=== PATIENT | female | born 1995 | race Caucasian/White ===

== ENCOUNTER 2019-09-17 06:12 | Inpatient (IN) | payer OTHER ==
[2019-09-17] VITALS (37 sets, daily range): BP systolic 97–147; BP diastolic 50–108
[~2019-09-17] VITALS: Ht 172.7 cm; Wt 85.3 kg
[2019-09-17] MEDS ORDERED: LR 1,000 ML IV SCH (07:33)
[2019-09-17] MEDS ORDERED: OXYTOCIN DRIP 30 UNITS in IV 1 EA IV SCH ×2 (07:45→20:36)
--- NOTE | 2019-09-17 07:51 | HPEPDOC ---
Obstetrical History & Physical General Date of Admission Sep 17, 2019 at 07:25 Primary Care Physician: A History of Present Illness patient is a 23 yo G1 @ 39+6wks gestation presents for LOF started at 0500 this AM. Patient reports waking up with gush of fluid and she continues to have leak age. denies VB. 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 history Past Medical History Medical History HYPOTHYROIDISM on synthroid 112.5mcg daily Surgical History: Other (eye surgery, T&A) Family History Significant Family History: No pertinent family hx Social History Social history denies tob/etoh/illicit rx Marital Status: Family situation: Spouse/partner home Psychosocial History: No pertinent psych hx * Smoker: non-smoker Alcohol: Denies Drugs: denies Imunizations Tdap status: current Influenza Status: needs Allergies Coded Allergies: No Known Allergies (Unverified , 09/17/19) Physical Examination Physical Examination GENERAL: Alert and oriented times three. ABDOMEN: Gravid and non-tender to touch. FETUS: Is vertex (VTX) by sterile vaginal examination (SVE), fetus is vertex (VTX) by Sagar. HEART RATE: s1s2 s m/g/c LUNGS: CTA s w/r/r. EXTREMITIES: No edema/erythema/tenderness Vital Signs/I&O Vital Signs Date Time Temp Pulse Resp B/P (MAP) Pulse Ox O2 Delivery O2 Flow Rate FiO2 09/17/19 06:37 98.4 85 18 123/78 (93) Laboratory Data 24H LABS Laboratory Tests 2 09/17/19 07:30: Serology Scanned Report Hepatitis B Testing Pertinent Laboratoy Data Blood Type: O+ RBC Antibody Screen: Negative HIV: Negative Hepatitis B: Negative Rapid Plasma Reagin: Nonreactive Rubella: Immune Varicella: Immune Chlamydia/Gonorrhea: Negative Group B Streptococcus: Negative Anatomy Ultrasound Placenta Location: Anterior Normal Anatomy: Yes Placenta Previa: No Vaginal Examination Dilation: 3 cm Effacement: 70% Station: 0 Cervical Consistency: Soft Cervical Position: Middle Presentation: Cephalic presentation Assessment Heart Rate (FHR): 140 Variability: Moderate Accelerations: Positive Decelerations: None Tocometer Contractions: No Assessment/Plan Assessment patient is a 23 yo G1 @ 39+6wks, grossly ruptured, PROM. Discussed with patient regarding expectant management vs. starting augmentation with pitocin and patient desires to have pitocin started. discussed l&d monitoring with possible invasive monitoring using FSE and IUPC. Risk of section discussed, vacuum and forceps delivery for emergent reason discussed, risk of infection, bleeding requiring blood transfusion with risk of anaphylactic reaction as well as transmission of blood borne pathogens. Plan Admit and orient. Isotope Hydrologist and consent. Diet: regular prior to pitocin, clear once pitocin starts Group B Streptococcus (GBS) negative Labs and intravenous (IV) per unit protocol. Counseled on Pitocin and induction of labor (IOL). Anticipate [normal spontaneous delivery ()]. C-S as appropriate. SHORTY KATE DO Sep 17, 2019 07:51
[2019-09-17 08:34] LABS: HEMATOCRIT 38.1 % (36.0-47.0); HEMOGLOBIN 12.9 g/dl (12.0-15.5); MEAN CORPUSCULAR HGB CONC 33.9 g/dl (32.0-36.5); MEAN CORPUSCULAR VOLUME 88.6 fl (80.0-96.0); PLATELET COUNT, AUTOMATED 227 10^3/uL (150-450); WHITE BLOOD COUNT 11.2 10^3/uL (4.0-10.0)
[2019-09-17] MEDS ORDERED: FENTANYL 2MCG/ML ROPIVACAINE 0.2% IN 0.9% NACL 100ML IVBAG As Ordered ONE (13:15)
[2019-09-17] MEDS ORDERED: REFRIGERATOR IV KEYS XX PRN (14:00)
[2019-09-17] MEDS ORDERED: ePHEDrine SULFATE 25 MG/5 ML(5MG/ML) SYRINGE IV PRN (14:00)
[2019-09-17] MEDS ORDERED: NALOXONE INJ 0.4 MG/1 ML VIAL (J2310) IV PRN (14:00)
[2019-09-17] MEDS ORDERED: EPIDURAL COMMENT XX SCH (14:00)
[2019-09-17] MEDS ORDERED: FENTANYL/ROPIVACAINE/NACL BAG 100 ML EPIDURAL SCH (14:00)
[2019-09-17] MEDS ORDERED: ONDANSETRON 4MG/2ML VIAL (J2405) IV PRN (14:00)
[2019-09-17] MEDS ORDERED: diphenhydrAMINE INJ 50MG/ML VIAL (J1200) IV PRN (14:00)
[2019-09-17] MEDS ORDERED: EPIDURAL/PCA KEYS XX PRN (14:00)
--- NOTE | 2019-09-17 17:57 | IPNPDOC ---
Text Note Date of Service The patient was seen on 09/17/19. NOTE patient with urge to push. pit at 2mU/min. vitals: normal NAD fht: 150/mod yulisa/pos accel/no decel toco: ctx q 2-3mins ce: c/c/+2 a/p patient in second stage of labor. start pushing. DO suzanne VS,Fishbone, I+O VS, Fishbone, I+O Laboratory Tests 09/17/19 08:20 Vital Signs Date Time Temp Pulse Resp B/P (MAP) Pulse Ox O2 Delivery O2 Flow Rate FiO2 09/17/19 16:17 98.7 84 16 116/71 (86) SHORTY KATE DO Sep 17, 2019 17:57
[2019-09-17] MEDS ORDERED: MEASLES,MUMPS,RUBELLA VACCINE INJ (MMR-II) (90707) SC SCH (20:45)
[2019-09-17] MEDS ORDERED: DOCUSATE SODIUM 100 MG CAP PO PRN (20:45)
[2019-09-17] MEDS ORDERED: RHOGAM 300 MCG (1500 IU) INJ (J2790) IM SCH (20:45)
[2019-09-17] MEDS ORDERED: DIBUCAINE 1% OINTMENT 30GM TOP PRN (20:45)
--- NOTE | 2019-09-17 21:05 | DNPDOC ---
[facility] Delivery Note Delivery Note DATE OF DELIVERY: 17sep2019 PREDELIVERY DIAGNOSIS: 39+6/7 weeks' gestation. premature rupture of membranes POST DELIVERY DIAGNOSIS: Delivered. PROCEDURE: Spontaneous vaginal delivery MOBILE DEVICE DEVELOPER: Dr. Mirna Mcdermott ANESTHESIA: epidural ESTIMATED BLOOD LOSS: 300 FINDINGS: 8 pound 4 ounce male infant, Score 9/10. DELIVERY SUMMARY: With good maternal effort baby delivered OA, restituted LOT. Anterior shoulder delivered followed by posterior shoulder with gentle guidance, body followed with ease. Baby placed on maternal abdomen. Cord allows to stop pulsating. Cord clamped x 2 and cut by FOB. Pitocin bolus started. Placenta delivered spontaneously. Fundus massaged firm. Perineum/vaginal inspection reveals bilateral labia tears extending into the lateral vaginal side hernandez. Lacerations repaired using 4 O vicryl, hemostatic. baby and mother bonding when I left the room. DO HUMBLE Lazaro LUAT N. DO Sep 17, 2019 20:43
[2019-09-17] MEDS: IBUPROFEN 800 MG TAB PO PRN (22:33)
[2019-09-17] MEDS ORDERED: LIDOCAINE 1% MDV INJ 50 ML VIAL As Ordered ONE (23:22)
[2019-09-17] MEDS ORDERED: LIDOCAINE 1% MDV 20ML VIAL As Ordered ONE (23:24)
[2019-09-18] MEDS: ACETAMINOPHEN 500 MG TAB PO PRN ×3 (04:32→21:46)
[2019-09-18 06:00] VITALS: BP 117/62
[2019-09-18] MEDS: LEVOTHYROXINE 112MCG TABLET (0.112MG) PO SCH (06:00)
--- NOTE | 2019-09-18 07:22 | IPNPDOC ---
Progress Note Date of Service: Sep 18, 2019 Progress Note SUBJECT: patient is a 23 yo s/p PPD #1. Patient without concerns. She has been ambulating, voiding spontaneously without issue and tolerating regular diet. Plans on breast feeding. Reports lochia is light. Undecided on contraceptive at this time. OBJECTIVE: VITAL SIGNS: Within normal limits, afebrile. Alert and oriented times three. Abdomen: Fundus firm at U-1. Soft, NTTP. LE: no edema/erythema/tenderness A/P ppd #1, doing well. encouraged bf. discussed contraceptive management. routine pp care. anticipate d/c home ppd #2. Le, DO VS, I&O, 24H, Fishbone Vital Signs/I&O Vital Signs Date Time Temp Pulse Resp B/P (MAP) Pulse Ox O2 Delivery O2 Flow Rate FiO2 09/18/19 06:00 98.6 83 18 117/62 (80) I&O- Last 24 Hours up to 6 AM 09/18/19 05:59 Intake Total 3900 ml Output Total 2150 ml Balance 1750 ml Laboratory Data 24H LABS Laboratory Tests 2 09/17/19 07:30: Serology Scanned Report Hepatitis B Testing 09/17/19 08:20: Nucleated Red Blood Cells % (auto) 0.0 CBC/BMP Laboratory Tests 09/17/19 08:20 SHORTY KATE DO Sep 18, 2019 07:22
[2019-09-18] MEDS: IBUPROFEN 800 MG TAB PO PRN ×2 (07:33→16:46)
[2019-09-18] MEDS: PRENATAL VITAMINS CHEWABLE TABLET PO SCH (07:33)
[2019-09-18 18:00] VITALS: BP 123/58
[2019-09-19] MEDS: IBUPROFEN 800 MG TAB PO PRN ×2 (01:08→09:42)
[2019-09-19] MEDS: LEVOTHYROXINE 112MCG TABLET (0.112MG) PO SCH (05:39)
[2019-09-19] MEDS: ACETAMINOPHEN 500 MG TAB PO PRN (05:40)
[2019-09-19 05:55] VITALS: BP 126/69
[2019-09-19] MEDS ORDERED: SYNT112T2 PO (07:31)
[2019-09-19] MEDS ORDERED: IBUP80TA PO (07:31)
[2019-09-19] MEDS ORDERED: ACET-683 PO (07:31)
[2019-09-19] MEDS ORDERED: PRENCHW PO (07:31)
[2019-09-19] MEDS ORDERED: DOCU100C16 PO (07:31)
[2019-09-19] MEDS ORDERED: DIBU10OI TOP (07:31)
[2019-09-19] MEDS: PRENATAL VITAMINS CHEWABLE TABLET PO SCH (07:47)
== END 2019-09-19 12:05 | disposition home or self-care (01) | DRG 807 ==
LOC: M LDO 06:12 → M LDI 07:25 → M OBS 23:15
PROVIDERS: ADMIT Obstetrics & Gynecology; ATTEND Obstetrics & Gynecology
PROC: 10E0XZZ Delivery of Products of Conception, External Approach (ICD-10-PCS; principal; 2019-09-17)
PROC: 0HQ9XZZ Repair Perineum Skin, External Approach (ICD-10-PCS; 2019-09-17)
DX: O42.02 Full-term premature rupture of membranes, onset of labor within 24 hours of rupture (principal); Z37.0 Single live birth; Z3A.39 39 weeks gestation of pregnancy; O70.0 First degree perineal laceration during delivery

== ENCOUNTER 2020-12-06 12:46 | Outpatient (CLI) | payer OTHER ==
[~2020-12-06] VITALS: Ht 172.7 cm; Wt 72.3 kg
[~2020-12-06 12:46] MED LIST: ACET-683 PO; DIBU10OI TOP; DOCU100C16 PO; IBUP80TA PO; PRENCHW PO; SYNT112T2 PO
[2020-12-06 13:05] VITALS: BP 113/65
[2020-12-06 13:46] LABS: HEMATOCRIT 33.8 % (36.0-47.0); HEMOGLOBIN 11.3 g/dl (12.0-15.5); MEAN CORPUSCULAR HEMOGLOBIN 30.9 pg (27.0-33.0); MEAN CORPUSCULAR HGB CONC 33.4 g/dl (32.0-36.5); MEAN CORPUSCULAR VOLUME 92.3 fl (80.0-96.0); PLATELET COUNT, AUTOMATED 204 10^3/uL (150-450); RED BLOOD COUNT 3.66 10^6/uL (4.00-5.40); WHITE BLOOD COUNT 8.1 10^3/uL (4.0-10.0)
[2020-12-06 14:31] VITALS: BP 117/75
--- NOTE | 2020-12-06 16:50 | IPNPDOC ---
Text Note Date of Service The patient was seen on 12/06/20. NOTE .patient LMP 05/08/20 EDC 02/12/21 at 30 weeks history sliding down stairs no loss of fluid no vaginal bleeding no decreased movement. REVIEWED NST CATEGORY 1 STRIP REACTIVE NO DECELERATIONS NO CONTRACTIONS BLOOD WORK NORMAL REVIEWED PRECAUTIONS . PLANNED DISCHARGED UNDELIVERED PRECAUTIONS GIVEN VS,Fishbone, I+O VS, Fishbone, I+O Laboratory Tests 12/06/20 13:41 Vital Signs Date Time Temp Pulse Resp B/P (MAP) Pulse Ox O2 Delivery O2 Flow Rate FiO2 12/06/20 14:31 98.2 80 16 117/75 (89) Room Air 12/06/20 13:06 97 Mumtaz Anderson MD Dec 06, 2020 16:47
== END 2020-12-06 14:40 | disposition home or self-care (01) ==
LOC: M LDO 12:46
PROVIDERS: ATTEND Obstetrics & Gynecology
DX: O9A.213 Injury, poisoning and certain other consequences of external causes complicating pregnancy, third trimester (principal); W10.9XXA Fall (on) (from) unspecified stairs and steps, initial encounter; Y92.009 Unspecified place in unspecified non-institutional (private) residence as the place of occurrence of the external cause; Y93.9 Activity, unspecified; Y99.9 Unspecified external cause status; Z3A.30 30 weeks gestation of pregnancy
CPT/HCPCS: 36415; 59025; 85027; 85460; G0378; G0463

== ENCOUNTER 2021-01-02 19:15 | Outpatient (CLI) | payer OTHER ==
[~2021-01-02] VITALS: Ht 172.7 cm; Wt 73.8 kg
[2021-01-02 19:30] VITALS: BP 115/78
--- NOTE | 2021-01-02 20:10 | IPNPDOC ---
Obstetrical Progress Note Date of Service Jan 02, 2021 Subjective 24yo at 34+0 presenting to L+D for pruritis of the palms and soles that is worse at night over the past couple of weeks. She denid n/v/d, cp, sob, roth, visual changes, and pain, f/c, vaginal bleeding, dc, urinary sx, lof, decreased fm, contractions. Objective Vital Signs Date Time Temp Pulse Resp B/P (MAP) Pulse Ox O2 Delivery O2 Flow Rate FiO2 01/02/21 19:35 99.3 18 01/02/21 19:30 93 115/78 (90) Assessment Heart Rate (FHR): 130 Variability: Moderate Accelerations: Positive Decelerations: None Heart Rate Tracing: Category I Tocometer Contractions: No Assessment and Plan Status: Reassuring Additional Comments 24yo at 34+0 presenting to L+D for pruritis of the palms and soles that is worse at night over the past couple of weeks. CBC/CMP were normal. CAT I tracing, normal VS. BA collected but are a send out lab. - strict routine OB return precuations - will treat as presumed IHCP until bile acids return - GS ordered to be done a Efraín, will set up for APFT 2x/wk Angel Physical Examination General Exam: Positive: Alert, No Acute Distress ENT EXAM: Positive: Atraumatic Chest Exam: Positive: Normal air movement Heart Exam: Positive: Rate Normal Abdomen Exam: Positive: Soft Psych Exam: Positive: Mental status NL ABBI CANALES DO Jan 02, 2021 20:10
[2021-01-02 20:49] LABS: HEMATOCRIT 33.5 % (36.0-47.0); HEMOGLOBIN 11.3 g/dl (12.0-15.5); MEAN CORPUSCULAR HEMOGLOBIN 30.6 pg (27.0-33.0); MEAN CORPUSCULAR HGB CONC 33.7 g/dl (32.0-36.5); MEAN CORPUSCULAR VOLUME 90.8 fl (80.0-96.0); PLATELET COUNT, AUTOMATED 183 10^3/uL (150-450); RED BLOOD COUNT 3.69 10^6/uL (4.00-5.40); WHITE BLOOD COUNT 8.9 10^3/uL (4.0-10.0)
[2021-01-02 21:12] VITALS: BP 111/65
[2021-01-02 21:14] LABS: ALBUMIN 2.7 GM/DL (3.2-5.2); ALT/SGPT 12 U/L (12-78); BILIRUBIN,TOTAL 0.2 MG/DL (0.2-1.0); BLOOD UREA NITROGEN 9 MG/DL (7-18); CARBON DIOXIDE LEVEL 27 MEQ/L (21-32); CHLORIDE LEVEL 105 MEQ/L (98-107); CREATININE FOR GFR 0.54 MG/DL (0.55-1.30); GLOMERULAR FILTRATION RATE > 60.0 (>60); GLUCOSE, FASTING 85 MG/DL (70-100); POTASSIUM SERUM 3.8 MEQ/L (3.5-5.1); SODIUM LEVEL 138 MEQ/L (136-145)
[2021-01-02 22:15] VITALS: BP 106/65
== END 2021-01-02 22:24 | disposition home or self-care (01) ==
LOC: EEVIPCON 19:15 → M LDO 19:15
PROVIDERS: ATTEND Obstetrics & Gynecology
DX: O26.613 Liver and biliary tract disorders in pregnancy, third trimester (principal); Z3A.34 34 weeks gestation of pregnancy
CPT/HCPCS: 59025; 80053; 82239; 85027; G0378; G0463

== ENCOUNTER 2021-02-18 12:16 | Outpatient (CLI) | payer OTHER ==
[~2021-02-18] VITALS: Ht 172.7 cm; Wt 76.9 kg
[2021-02-18 12:32] VITALS: BP 107/66
[2021-02-18 14:16] VITALS: BP 110/66
--- NOTE | 2021-02-18 14:36 | REP ---
INDICATION: fall, r/o abruption, MANDIE. COMPARISON: None. TECHNIQUE: Real-time sonographic evaluation of gravid uterus performed. FINDINGS: There is a single living intrauterine gestation. Reportedly the estimated gestational age is 40 weeks 6 days, EDC 02/12/2021. The position is cephalic. The placenta is anterior and fundal. The placenta is grade 3 with no evidence of previa or abruption. Cervix is closed and measures 3 cm in length. heart rate is 156 beats per minute. Amniotic fluid is within normal limits. MANDIE is 8.0 cm. IMPRESSION: Intrauterine gestation, heart rate 156 beats per minute. No placenta previa or abruption. Amniotic fluid appears within normal limits. <Electronically signed by Jesse Qureshi > 02/18/21 0212
[2021-02-18 14:54] VITALS: BP 112/69
--- NOTE | 2021-02-18 15:08 | IPNPDOC ---
Obstetrical Progress Note Date of Service Feb 18, 2021 Subjective 25 yo at 40w6d with THELMA of 12 FEB 2021 presents to L&D for fall from standing after trying to alexandra after toddler and she slipped on the curb around 1050 this morning. She fell on hands and knees and admits that she did not hit abdomen or bottom. She denies feeling any cramping and reports an occasional contractions. She denies vaginal bleeding, leaking of fluid, and reports po sitive movement. She has IOL scheduled for tomorrow, 20 FEB 2012, for postdates . is complicated by hypothyroid on synthroid and close interval . She states that she otherwise feels fine. She desires for cervical exam and requests for membranes to be stripped. Objective Vital Signs Date Time Temp Pulse Resp B/P (MAP) Pulse Ox O2 Delivery O2 Flow Rate FiO2 02/18/21 12:32 98.7 78 16 107/66 (80) Mild excoriation laceration noted to bilateral knees and right palm. Cervical exam: 80/-2, membranes stripped per patient request. Assessment Heart Rate (FHR): 135 Variability: Moderate Accelerations: Present Decelerations: None Tocometer Contractions: Yes Frequency: other (occasional) Sterile Vaginal Examination Dilation: 3 cm Effacement (%): 80% Station: -2 Cervical Consistency: Soft Cervical Position: Middle Postion/Presentation: Cephalic presentation Assessment and Plan Age: 25 : 2 Term: 1 Pre-term: 0 Abortions: 0 Livin EGA at Admission: 40 (+6) Weeks & Days 40w6d Status: Reassuring Group B Streptococcus: Negative Anticipate: Other (Discharge to home, certified not in labor) Additional Comments Recommended to keep IOL tomorrow Keep all appointments at [facility] [employer] [facility] and Labor precautions discussed Return if symptoms worsen or persist 20 minutes of face to face time with the patient to assess, discussed results of ultrasound, and plan for discharge. FOX FLOYD CNM Feb 18, 2021 15:08
== END 2021-02-18 15:09 | disposition home or self-care (01) ==
LOC: M LDO 12:16
PROVIDERS: ATTEND Registered Nurse Maternal Newborn
DX: Z04.3 Encounter for examination and observation following other accident (principal); O48.0 Post-term pregnancy; Z3A.40 40 weeks gestation of pregnancy; O99.283 Endocrine, nutritional and metabolic diseases complicating pregnancy, third trimester; E03.9 Hypothyroidism, unspecified; O9A.213 Injury, poisoning and certain other consequences of external causes complicating pregnancy, third trimester; S81.011A Laceration without foreign body, right knee, initial encounter; S81.012A Laceration without foreign body, left knee, initial encounter; S61.411A Laceration without foreign body of right hand, initial encounter; W01.0XXA Fall on same level from slipping, tripping and stumbling without subsequent striking against object, initial encounter; Y92.9 Unspecified place or not applicable
CPT/HCPCS: 59025; 76815; G0378; G0463

== ENCOUNTER 2021-02-19 01:14 | Inpatient (IN) | payer OTHER ==
[~2021-02-19] VITALS: Ht 172.7 cm; Wt 76.9 kg
[2021-02-19] VITALS (9 sets, daily range): BP systolic 106–125; BP diastolic 58–80
[2021-02-19] MEDS ORDERED: OXYTOCIN 30 UNITS IN 0.9% NaCl 500ML IV BAG (J2590) As Ordered ONE (01:20)
[2021-02-19 02:04] LABS: HEMATOCRIT 37.4 % (36.0-47.0); HEMOGLOBIN 12.8 g/dl (12.0-15.5); MEAN CORPUSCULAR HEMOGLOBIN 31.1 pg (27.0-33.0); MEAN CORPUSCULAR HGB CONC 34.2 g/dl (32.0-36.5); PLATELET COUNT, AUTOMATED 198 10^3/uL (150-450); RED BLOOD COUNT 4.11 10^6/uL (4.00-5.40); WHITE BLOOD COUNT 13.7 10^3/uL (4.0-10.0)
--- NOTE | 2021-02-19 02:55 | HPEPDOC ---
Obstetrical History & Physical General Date of Admission Feb 19, 2021 at 01:14 History of Present Illness 25yo at 41+0wks presents reporting onset of painful ctx's for last several hours that have progressed to now q3-5min apart. She endorses pelvic pressure. Denies LOF, DFM, or VB. Chief Complaint: Contractions, term Information Provided By: Patient Care Care: Good Care Dating Final EDC: Feb 12, 2021 Final EDC for Daily Update: Feb 12, 2021 Antepartum Course Height (inches): 68 Pre- weight (lbs.): 148 Admission Weight (lbs.): 168 Change in Weight (lbs.): 20 Past Medical History Past Obstetrical History : Past Obstetrical History: Multigravida Date of Delivery: Sep 17, 2019 Gestation: 39 (+6) Type of Delivery: Spontaneous Vaginal Del. 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 Past Medical History Medical History Hypothyroidism Surgical History: Tonsilectomy, Other (Eye surgery) Family History Significant Family History: No pertinent family hx Social History Marital Status: Family situation: Spouse/partner home Psychosocial History: No pertinent psych hx * Smoker: non-smoker Alcohol: Denies Drugs: denies Abuse Violence Screening Have you been hit/kicked/slapp: No Have you been sexually assault: No Imunizations Tdap status: current ([id number]) Influenza Status: current () Allergies Coded Allergies: No Known Allergies (Unverified , 09/17/19) Medications Scheduled Levothyroxine Sodium (Synthroid) 112 Mcg Tablet, 112 MCG PO DAILY@06 Pnv No.118/Iron Fumarate/FA ( 19 Chewable Tablet) 1 Each Tab.chew, 1 TAB PO DAILY Physical Examination Physical Examination GENERAL: Alert and oriented times three. ABDOMEN: Gravid and non-tender to touch. FETUS: Is vertex (VTX) by sterile vaginal examination (SVE), fetus is vertex (VTX) by Sagar. HEART RATE: well-perfused LUNGS: no exaggerated respiratory effort appreciated EXTREMITIES: No edema. Laboratory Data 24H LABS Laboratory Tests 2 02/19/21 01:20: Nucleated Red Blood Cells % (auto) 0.0 02/19/21 01:20: Serology Scanned Report Hepatitis B Testing CBC/BMP Laboratory Tests 02/19/21 01:20 Pertinent Laboratoy Data Blood Type: O+ RBC Antibody Screen: Negative HIV: Negative Hepatitis B: Negative Rapid Plasma Reagin: Nonreactive Rubella: Immune Varicella: Immune Chlamydia/Gonorrhea: Negative Group B Streptococcus: Negative Quad Screen Test: Declined Cystic Fibrosis: Declined Glucose Tolerance Test: 102 Anatomy Ultrasound Placenta Location: Posterior Normal Anatomy: Yes Placenta Previa: No Vaginal Examination Dilation: complete Effacement: 100% Station: 0 Cervical Consistency: Soft Cervical Position: Anterior Presentation: Cephalic presentation Assessment Heart Rate (FHR): 140 Variability: Moderate Accelerations: Positive Decelerations: None Tocometer Contractions: Yes Frequency: every 2-5 min. Multi-drug resistant Organism: No history of MDRO Assessment/Plan Assessment 25yo at 41+0wks presenting in active labor at c/c/0 with BBOW. Patient normotensive. FHRT cat I. GBS Neg. Plan Admit and orient. Optometric Technician and consent. Diet: regular as tolerated Group B Streptococcus (GBS) negative. Labs and intravenous (IV) per unit protocol. Anticipate normal spontaneous delivery (). C-S as appropriate. ABE RAMOS DO Feb 19, 2021 02:55
--- NOTE | 2021-02-19 03:01 | DNPDOC ---
[facility] Delivery Note Delivery Note DATE OF DELIVERY: 02/19/2021 PREDELIVERY DIAGNOSIS: 41+0/7 weeks' gestation and labor. POST DELIVERY DIAGNOSIS: Delivered. PROCEDURE: Spontaneous vaginal delivery ROAD MIXER OPERATOR: Dr. Abe Ramos ANESTHESIA: None ESTIMATED BLOOD LOSS: 50 mL. FINDINGS: 7 pound 8 ounce 3400g infant, Score 8/9, no meconium, no nuchal cord. DELIVERY SUMMARY: Ermelinda presented to L&D at c/c/0 with BBOW. She was prepped for delivery. She began pushing. She had SROM notable for clear fluid. She made excellent progress on maternal effort alone to c/c/+4. She pushed with excellent control with delivery of head. Presentation was OA with restitution to ROT with left shoulder anterior position. Anterior shoulder and body delivered without difficulty. placed immediately on maternal abdomen where he was dried and suctioned with vigorous cry. IV pitocin bolus was initiated. Inspection revealed no lacerations. Delayed cord clamping was completed per patient request for 10 minutes. Three vessel cord was then clamped x2 and cut by FOB. Third stage spontaneous with intact placenta. Fundal massage revealed firm uterine tone with hemostasis. EBL 50ml. Mother and stable and bonding upon my leaving the room. Jerrica, OB Staff ABE RAMOS DO Feb 19, 2021 03:01
--- NOTE | 2021-02-19 17:58 | IPN ---
PROGRESS NOTE DATE: 02/19/2021 This patient requested circumcision of her male . After discussing risks and benefits of circumcision, the medical and the nonmedical indications, the penile block and aftercare; expressed understanding of penile block, aftercare, and bleeding. Signed the consent form. All questions were answered, 20 minute discussion. We await clearance by the manager floor.
[2021-02-20 06:00] VITALS: BP 122/62
[2021-02-20] MEDS ORDERED: SYNT112T2 PO (06:45)
[2021-02-20] MEDS ORDERED: DOK1CAP7 PO (06:45)
[2021-02-20] MEDS ORDERED: IBUP-1022 PO (06:45)
--- NOTE | 2021-02-20 10:02 | DSES ---
DISCHARGE SUMMARY DATE OF ADMISSION: 02/19/2021 DATE OF DISCHARGE: 02/20/2021 BRIEF HISTORY: This lady is a 25-year-old 2, now para 2 admitted at 41 weeks of gestation active labor, had a spontaneous vaginal delivery, male infant, 7 pounds, 8 ounces, 3400 gm, Apgars of 8 and 9 at one and five minutes respectively. On her first day we discussed phlebitis, cystitis, mastitis, endometritis, cellulitis, diet, exercise, pain management, perineal, breast and wound care. Her admitting hemoglobin was 12.8, hematocrit 37.4, and platelets were 198. PHYSICAL EXAM: Discharge vital signs: Blood pressure was 122/62, respirations 18, pulse 58, temperature 98.2. The rest of the examination unremarkable. Normocephalic, atraumatic. Neck full range of motion. Pupils equal and reactive to light. Distal pulses are symmetric. No evidence of deep venous thrombosis (DVT), pulmonary embolism (PE) or superficial phlebitis. Chest is clear bilaterally to bases. No wheezes or rhonchi. No costovertebral angle (CVA) tenderness. Abdomen is soft. Four quadrant bowel sounds are noted. Uterus is 2 below. Lochia is moderate. Perineum is intact. No rashes, lesions or pruritus. No arthralgias or myalgias. No complaint of joint pain. No complaint of cough, wheeze, shortness of breath or dyspnea on exertion. No nausea, diarrhea or constipation. No urgency or frequency. SUMMARY: We have a term gestation, delivered a live male infant. Medications to be picked up at [facility]. Six week checkup at [facility]. Patient was discharged improved. All questions were answered, 20 minute discussion. [facility]
== END 2021-02-20 09:55 | disposition home or self-care (01) | DRG 807 ==
LOC: M LDI 01:14 → M OBS 03:53
PROC: 10E0XZZ Delivery of Products of Conception, External Approach (ICD-10-PCS; principal; 2021-02-19)
DX: O48.0 Post-term pregnancy (principal); Z37.0 Single live birth; Z3A.41 41 weeks gestation of pregnancy; O99.284 Endocrine, nutritional and metabolic diseases complicating childbirth; E03.9 Hypothyroidism, unspecified